=== PATIENT | male | born 1960 | race Caucasian/White ===

== ENCOUNTER 2017-03-10 12:02 | Inpatient (IN) | payer BC ==
[2017-02-28 18:34] LABS: BASOPHILS 0.2 %; BASOPHILS ABSOLUTE 0.01 10/3/uL (0.0-0.16); EOSINOPHILS ABSOLUTE 0.11 10/3/uL (0.0-0.53); HEMATOCRIT 41.6 % (40.0-51.0); HEMOGLOBIN 13.8 g/dL (13.6-17.8); IMMATURE GRANULOCYTES 0.4 %; IMMATURE GRANULOCYTES ABSOLUTE 0.02 10/3/uL (0.0-0.11); LYMPHOCYTES 24.9 %; LYMPHOCYTES ABSOLUTE 1.39 10/3/uL (0.67-4.30); MEAN CORPUS HGB CONC 33.2 g/dL (32.0-36.0); MEAN CORPUSCULAR HEMOGLOB 31.4 pg (26.0-34.0); MEAN CORPUSCULAR VOLUME 94.8 fL (80-100); MEAN PLATELET VOLUME 9.5 fL (9.2-13.0); MONOCYTES 9.5 %; MONOCYTES ABSOLUTE 0.53 10/3/uL (0.21-1.20); NEUTROPHILS ABSOLUTE 3.53 10/3/uL (2.02-8.40); PLATELET COUNT 267 10/3/uL (150-400); RBC DISTRIBUTION WIDTH 14.2 % (12.0-16.0); RED CELL COUNT 4.39 10/6/uL (4.7-6.1); WHITE BLOOD CELLS 5.6 10/3/uL (4.5-10.5)
[2017-02-28 18:39] LABS: MANUAL DIFF NO %
[2017-02-28 18:44] LABS: ASCORBIC ACID (UR NOT ORDER) NEG (NEG); BILIRUBIN, URINE NEGATIVE (NEG); KETONE, URINE NEGATIVE (NEG); LEUKOCYTE ESTERASE(NOT OR NEG (NEG); WBC (NOT ORDERED) (RFLEX) < 1 (0-5)
[2017-02-28 18:45] LABS: INTERNATIONAL NORMAL RATI 0.9 UNITS (-); PROTIME (NOT ORD) 12.3 SEC (12.0-14.5)
[2017-02-28 18:48] LABS: A/G RATIO 1.3 (0.7-1.9); ALBUMIN 4.2 G/DL (3.5-5.0); ALKALINE PHOSPHATASE 69 U/L (45-117); BUN (BLOOD UREA NITROGEN) 9 MG/DL (6-23); CALCIUM, SERUM 8.9 MG/DL (8.5-10.4); CHLORIDE, SERUM 100 MMOL/L (96-112); CO2 (CARBON DIOXIDE) 33 MMOL/L (24-34); CREATININE 0.87 MG/DL (0.70-1.30); GFR AFRICAN AMERICAN 113 ML/MIN (>=60); GFR NON AFRICAN AMERICAN 98 ML/MIN (>=60); GLOBULIN 3.3 G/DL (2.5-4.1); GLUCOSE, SERUM 105 MG/DL (60-99); POTASSIUM, SERUM 4.3 MMOL/L (3.5-5.3); SGOT(AST) 38 U/L (5-40); SGPT(ALT) 38 U/L (5-65); SODIUM, SERUM 136 MMOL/L (135-148); TOTAL BILIRUBIN 1.2 MG/DL (0-1.2); TOTAL PROTEIN 7.5 G/DL (6.0-8.5)
--- NOTE | ~2017-03-10 | OP ---
Record Of Operation [facility] [address] [place]. 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 POSTOPERATIVE DIAGNOSIS: Failed left total knee arthroplasty. PROCEDURE: Left total knee revision arthroplasty. SURGEON: Jase Roberson M.D. FINE WIRE DRAWER: See chart. DESCRIPTION OF PROCEDURE: The patient was taken to the operating room and placed supine on the table in normal fashion without incident. General anesthetic was induced per the anesthesiologist. The patient was carefully positioned, padded, prepped, and draped in normal sterile fashion. Left lower extremity was exsanguinated and tourniquet inflated to 350. Sharp dissection was made through the old incision with electrocautery through the fat. Sharp quad-splitting approach was carried out. Benign-appearing fluid was sent for cultures and Gram stain. A complete synovectomy was performed. The patient had the miserable motion to start with where he was extending the length to about 20 and flexing to about 70. I meticulously proceeded to release capsular tissue and capsular adhesions all around the medial and lateral gutters all through the supracondylar space and lateral release. With progressive relief, I took out the insert and which was in two pieces as he had a ConforMIS type prosthesis. The femoral and tibial components were grossly oversized, removed with flexible osteotomes. Sequential reamers were used in the tibia and femur. Intramedullary guide used to cut the proximal tibia and distal femur. The remaining cuts were made on the distal femur after using a ruler to verify flexion and extension balance. The patella was cut with an oscillating saw and debrided abundant overgrown were arthrofibrotic tissue and bone from around the patella. It was redrilled with a patella drill guide and now with trial patella in place, there was excellent medial and lateral balance and excellent flexion and extension balance. All surfaces were copiously irrigated with pulsatile lavage after preparing the tibia with a punch, vacuum-mixed cement premixed with antibiotic was pressurized in a doughy phase in the tibia, tibial component placed, impacted, and excess cement removed. Cement was pressurized in the femur and placed on the posterior runners of the femoral component, which was placed, impacted, and excess cement removed. Knee brought out in extension on a trial spacer. Cement was pressurized in the patella. Patellar component placed, held with a clamp, and excess cement removed. Once all cement was hardened, knee was taken through range of motion and further extruded cement was removed with a small osteotome. The actual insert was then placed, impacted, checked to be sure it was sound and snug. Knee closed in a layered fashion over a medium ConstaVac drain superolaterally. The wound was dressed sterilely. The patient was awakened and taken to the postanesthesia care unit without incident. COMPLICATIONS: None. Record Of Operation [address] [place]. [address] NAME: KADEEM RAMIREZ : 64 STATUS : ADM IN [facility]#: [id number] AGE: 56 ADM/REG DATE : 03/10/17 MR#: [id number] REPORT SERV DATE: 03/11/17 DICTATED BY: EGORGE ROBERSON DATE: 03/11/17 REPORT STATUS : Draft TRANSCRIBED BY: ESPINOZA DATE: 03/11/17 SPECIMENS: Removed components and cultures. ESTIMATED BLOOD LOSS: Trace. WTB/ESPINOZA Jase Roberson M.D. / [id number] CC: Sara Lopez ANDERS EUGENE
[~2017-03-10 12:02] MED LIST: ATEN100 PO; HCTZ25B PO; MELOXICAM PO; MORPHINE 30 MG PO; MULTIPLE VIT PO; OXYCODONE PO; ZESTRIL10 MG PO
[2017-03-11 07:05] LABS: HEMOGLOBIN 9.6 g/dL (13.6-17.8)
[2017-03-11 07:10] LABS: INTERNATIONAL NORMAL RATI 1.1 UNITS (-)
[2017-03-11 07:12] LABS: PROTIME (NOT ORD) 14.5 SEC (12.0-14.5)
[2017-03-11 07:15] LABS: BUN (BLOOD UREA NITROGEN) 12 MG/DL (6-23); CALCIUM, SERUM 8.1 MG/DL (8.5-10.4); CHLORIDE, SERUM 102 MMOL/L (96-112); CREATININE 0.73 MG/DL (0.70-1.30); GFR AFRICAN AMERICAN 122 ML/MIN (>=60); GFR NON AFRICAN AMERICAN 105 ML/MIN (>=60); GLUCOSE, SERUM 114 MG/DL (60-99); SODIUM, SERUM 137 MMOL/L (135-148)
[2017-03-11 07:18] LABS: CO2 (CARBON DIOXIDE) 28 MMOL/L (24-34)
[2017-03-12 05:02] LABS: HEMATOCRIT 25.5 % (40.0-51.0); HEMOGLOBIN 8.7 g/dL (13.6-17.8)
[2017-03-12 05:20] LABS: INTERNATIONAL NORMAL RATI 1.4 UNITS (-)
[2017-03-12] MEDS ORDERED: ZOFRAN4 PO (09:47)
[2017-03-12] MEDS ORDERED: C25 PO (09:47)
[2017-03-12] MEDS ORDERED: ROXICODONE15 MG PO (09:48)
== END 2017-03-12 10:59 | disposition home or self-care (01) | DRG 467 ==
LOC: SDC/OF 12:02 → 3JRC 19:47
PROVIDERS: Specialist; Student in an Organized Health Care Education/Training Program
PROC: 3E0T3CZ (ICD-10-PCS; 2017-03-10)
PROC: 0SWD0JZ Revision of Synthetic Substitute in Left Knee Joint, Open Approach (ICD-10-PCS; principal; 2017-03-10 13:45)
DX: T84.093A Other mechanical complication of internal left knee prosthesis, initial encounter (principal); D62 Acute posthemorrhagic anemia; I10 Essential (primary) hypertension; Z79.899 Other long term (current) drug therapy; M19.90 Unspecified osteoarthritis, unspecified site; Z96.653 Presence of artificial knee joint, bilateral; Z87.891 Personal history of nicotine dependence; G89.29 Other chronic pain
CPT/HCPCS: 36415; 71020-PO; 80048; 80053; 81001; 85014; 85018; 85025; 85610; 86850; 86900; 86901; 87015; 87070; 87075; 87102; 87116; 87205; 87641; 88300; 88304; 88311; 93005; 97116-GP; 97150-GP; 97161-GP; 97165-GO; 97166-GO; A9270-GY; C1776; J0690; J1170; J1885; J2250; J2270; J2405; J2795; J3010; J3260; J3370